=== PATIENT | male | born 1965 | race African-American/Black ===

== ENCOUNTER 2017-06-15 05:50 | Inpatient (IN) | payer OTHER ==
[~2017-06-15] VITALS: Ht 172.7 cm; Wt 102.1 kg
[~2017-06-15 05:50] MED LIST: SIMVASTATIN PO
[2017-06-15] MEDS ORDERED: ASPIRIN 81MG TABLET PO STA (06:46)
[2017-06-15 07:15] LABS: EOSINOPHILS % 6.4 % (0.0-5.0); HEMATOCRIT. 45.2 % (42.0-52.0); LYMPHOCYTES % 35.3 % (20.0-50.0); MEAN CORPUSCULAR HEMOGLOBIN 28.4 pg (28.0-32.0); MEAN CORPUSCULAR VOLUME 85.5 fL (80.0-94.0); MEAN PLATELET VOLUME 8.8 fl (7.4-10.4); NEUTROPHILS % 48.3 % (40.0-76.0); PLATELET 210 x1000/uL (130-400); RED BLOOD CELL COUNT 5.29 mill/uL (4.7-6.1); RED CELL DISTRIBUTION WIDTH 14.2 % (11.6-14.6)
[2017-06-15] MEDS ORDERED: CLONIDINE 0.1MG TABLET PO ONE (07:15)
[2017-06-15 07:26] LABS: D-DIMER 0.63 mg/L FEU (<0.50); PARTIAL THROMBOPLASTIN TIME 28.8 sec (23.4-31.0); PROTHROMBIN TIME 10.9 sec (9.4-11.6)
[2017-06-15 07:33] LABS: CHLORIDE 103 mEq/L (98-107); TROPONIN I < 0.02 ng/mL (0.00-0.04)
[2017-06-15 20:50] VITALS: BP 151/102
[2017-06-15 21:00] VITALS: BP 151/102
[2017-06-15] MEDS ORDERED: CLONIDINE 0.1MG TABLET PO PRN (22:45)
[2017-06-15] MEDS ORDERED: IPRATROPIUM/ALBUTEROL 0.5-3(2.5)MG/3ML NEB HHN PRN (22:45)
[2017-06-15] MEDS ORDERED: HYDROCODONE/ACETAMINOPHEN 5/325MG TABLET PO PRN (22:45)
[2017-06-15] MEDS: AMLODIPINE 5MG TABLET PO SCH (22:54)
[2017-06-15 23:31] LABS: CREATINE KINASE 144 IU/L (39-308); CREATINE KINASE MB FRACTION 0.9 ng/mL (0.5-3.6); TROPONIN I < 0.02 ng/mL (0.00-0.04)
[2017-06-16] VITALS (7 sets, daily range): BP systolic 143–150; BP diastolic 92–104
[2017-06-16 07:16] LABS: BASOPHILS % 0.6 % (0.0-2.0); EOSINOPHILS % 5.5 % (0.0-5.0); MEAN CORPUSCULAR HEMOGLOBIN 28.3 pg (28.0-32.0); MEAN CORPUSCULAR VOLUME 85.1 fL (80.0-94.0); MEAN PLATELET VOLUME 9.1 fl (7.4-10.4); MONOCYTES % 7.7 % (2.0-8.0); NEUTROPHILS % 49.2 % (40.0-76.0); PLATELET 213 x1000/uL (130-400); RED BLOOD CELL COUNT 5.28 mill/uL (4.7-6.1); RED CELL DISTRIBUTION WIDTH 14.5 % (11.6-14.6)
[2017-06-16 08:36] LABS: CHLORIDE 104 mEq/L (98-107)
[2017-06-16] MEDS: ASPIRIN 81MG TABLET PO SCH (08:48)
[2017-06-16] MEDS: AMLODIPINE 5MG TABLET PO SCH (08:48)
[2017-06-16] MEDS: ENOXAPARIN 30MG/0.3ML SYR SUBCUT SCH ×2 (08:49→21:29)
[2017-06-16 08:53] LABS: CREATINE KINASE 132 IU/L (39-308); CREATINE KINASE MB FRACTION 0.7 ng/mL (0.5-3.6); HDL CHOLESTEROL 35 mg/dL (40-59); LDL CHOLESTEROL 146 mg/dL (5-100); TROPONIN I < 0.02 ng/mL (0.00-0.04)
[2017-06-16] MEDS ORDERED: REGADENOSON 0.4 MG/5 ML IV NR (13:15)
[2017-06-16] MEDS ORDERED: CLONIDINE 0.2MG TABLET PO PRN (13:15)
[2017-06-16] MEDS: LOSARTAN POTASSIUM 25 MG TABLET PO SCH (14:35)
[2017-06-16 17:00] LABS: *AMPHETAMINES SCREEN URINE NEGATIVE (NEGATIVE); *BARBITURATES SCREEN URINE NEGATIVE (NEGATIVE); *BENZODIAZEPINES SCREEN URINE NEGATIVE (NEGATIVE); *COCAINE SCREEN URINE NEGATIVE (NEGATIVE); CANNABINOID URINE SCREEN NEGATIVE (NEGATIVE); METHADONE URINE SCREEN NEGATIVE (NEGATIVE); OPIATES URINE SCREEN NEGATIVE (NEGATIVE); PHENCYCLIDINE URINE SCREEN NEGATIVE (NEGATIVE)
[2017-06-16] MEDS ORDERED: CLONIDINE 0.1MG TABLET PO PRN (17:45)
[2017-06-16] MEDS ORDERED: ATORVASTATIN CALCIUM 20MG TABLET PO SCH (21:00)
[2017-06-17] VITALS: BP 136/86
[2017-06-17 04:00] VITALS: BP 136/92
[2017-06-17 06:10] LABS: BASOPHILS % 0.5 % (0.0-2.0); EOSINOPHILS % 6.4 % (0.0-5.0); HEMATOCRIT. 48.3 % (42.0-52.0); HEMOGLOBIN. 15.9 g/dL (14.0-18.0); LYMPHOCYTES % 34.7 % (20.0-50.0); MEAN CORPUSCULAR HEMOGLOBIN 28.5 pg (28.0-32.0); MEAN CORPUSCULAR VOLUME 86.4 fL (80.0-94.0); MEAN PLATELET VOLUME 9.2 fl (7.4-10.4); MONOCYTES % 9.8 % (2.0-8.0); NEUTROPHILS % 48.6 % (40.0-76.0); PLATELET 220 x1000/uL (130-400); RED BLOOD CELL COUNT 5.59 mill/uL (4.7-6.1); RED CELL DISTRIBUTION WIDTH 14.1 % (11.6-14.6)
[2017-06-17 06:22] LABS: CHLORIDE 101 mEq/L (98-107)
[2017-06-17 08:00] VITALS: BP 122/80
[2017-06-17] MEDS ORDERED: REGADENOSON 0.4 MG/5 ML IV ONE (08:56)
[2017-06-17] MEDS: AMLODIPINE 5MG TABLET PO SCH (10:53)
[2017-06-17] MEDS: LOSARTAN POTASSIUM 25 MG TABLET PO SCH (10:53)
[2017-06-17] MEDS: ENOXAPARIN 30MG/0.3ML SYR SUBCUT SCH (10:53)
[2017-06-17] MEDS: ASPIRIN 81MG TABLET PO SCH (10:53)
[2017-06-17 12:00] VITALS: BP 104/74
[2017-06-17] MEDS ORDERED: SODIUM CHLORIDE 0.9% 10ML VIAL ONE (14:54)
[2017-06-17 16:00] VITALS: BP 129/90
[2017-06-17 17:21] VITALS: BP 129/90
== END 2017-06-17 18:10 | disposition home or self-care (01) | DRG 313 ==
LOC: ER 05:50 → 5WST 11:02 → EDBEDREQ 11:06 → EDBEDREQTM 11:06 → ENRESERV 19:27
PROVIDERS: ADMIT Internal Medicine; ATTEND Internal Medicine
DX: R07.89 Other chest pain (principal); E66.9 Obesity, unspecified; I10 Essential (primary) hypertension; E78.2 Mixed hyperlipidemia; Z79.82 Long term (current) use of aspirin; Z91.14 Patient's other noncompliance with medication regimen; Z79.899 Other long term (current) drug therapy; Z68.34 Body mass index [BMI] 34.0-34.9, adult
CPT/HCPCS: 36415; 71045; 78452; 80048; 80053; 80061; 80305; 82550; 82553; 83036; 83690; 83735; 83880; 84443; 84484; 85025; 85379; 85610; 85730; 93005; 93017; 99285; A4216; A9500; J1650; J2785